=== PATIENT | male | born 1985 | race Caucasian/White ===

== ENCOUNTER 2018-10-02 22:55 | Emergency (ER) | payer SELFPAY ==
[2018-10-02] MEDS ORDERED: HYDROcodone/Acetaminophen 10/325 mg Tablet ONE (23:23)
--- NOTE | 2018-10-02 23:23 | RAD ---
Exam: One view chest Three views right ribs: HISTORY: Right-sided rib pain. Fracture 9 days ago. Worsening pain. COMPARISON: None FINDINGS: Chest one view: Normal cardiac silhouette. Lungs and pleural spaces are clear. No pneumothorax Right ribs: Nondisplaced fracture involving the anterolateral right seventh and eighth rib. Additiona l fractures are not appreciated. IMPRESSION: 1. Right anterior lateral seventh and eighth rib fractures 2. No acute cardiopulmonary process. Transcribed Date/Time: 10/02/2018 11:31 PM
== END 2018-10-02 23:37 | disposition home or self-care (01) ==
LOC: ERS 22:55
DX: S22.41XA Multiple fractures of ribs, right side, initial encounter for closed fracture (principal); Z71.6 Tobacco abuse counseling; X50.0XXA Overexertion from strenuous movement or load, initial encounter
CPT/HCPCS: 94799; 99406

== ENCOUNTER 2019-10-14 19:47 | Emergency (ER) | payer SELFPAY ==
--- NOTE | 2019-10-14 20:34 | RAD ---
RIGHT HAND THREE VIEW: 10/14/19 HISTORY: Trauma. Pain and swelling. COMPARISON: None. FINDINGS: There is mild widening of the radial aspect of the thumb metacarpophalangeal joint. No acute displace d fracture. There is mild volar subluxation of the metacarpophalangeal joint of the thumb. IMPRESSION: 1. No acute fracture. 2. Mild volar subluxation and radial widening of the thumb metacarpophalangeal joint. This can b e due to underlying ligamentous or tendinous injury. POS: HOME
--- NOTE | 2019-10-15 06:32 | RAD ---
RIGHT HAND THREE VIEWS: HISTORY: Post reduction comparison. COMPARISON: Radiograph from the same day. FINDINGS: Improved to the thumb metacarpophalangeal joint. IMPRESSION: Improved alignment post reduction. POS: HOME
== END 2019-10-14 22:39 | disposition home or self-care (01) ==
LOC: ERS 19:47
DX: S63.111A Subluxation of metacarpophalangeal joint of right thumb, initial encounter (principal); W18.30XA Fall on same level, unspecified, initial encounter
CPT/HCPCS: 26641

== ENCOUNTER 2025-02-16 20:24 | Emergency (ER) | payer SELFPAY | END 2025-02-16 22:10 | disposition home or self-care (01) | LOC: ERS 20:24 | DX: S93.601A Unspecified sprain of right foot, initial encounter (principal); W01.0XXA Fall on same level from slipping, tripping and stumbling without subsequent striking against object, initial encounter; Y93.01 Activity, walking, marching and hiking | CPT/HCPCS: 99283 ==